=== PATIENT | male | born 2000 | race African-American/Black ===

== ENCOUNTER 2021-09-11 20:45 | Emergency (ER) | payer OTHER ==
[2021-09-11 21:00] VITALS: BP 143/67
[2021-09-11 21:18] LABS: RAPID STREP SCREEN Negative (Negative)
--- NOTE | 2021-09-11 21:43 | ED Physician Documentation ---
PD HPI HEENT - Stated complaint Stated Complaint: THROAT PX - Chief complaint Chief Complaint: Heent - History obtained from History obtained from: Patient - Additional information Additional information: The patient comes to the emergency department chief complaint of sore throat and headache. Patient states his roommate has been coughing and sneezing and he thinks he got the same thing. The patient has had a little bit of a cough but has not had any nasal congestion, and denies shortness of breath. He is fully vaccinated for COVID. The patient states he is mainly here because he would like to be tested for strep. No other complaints at this time. The patient has not had a fever. He is otherwise healthy. Review of Systems Ten Systems: 10 systems reviewed and negative Constitutional: reports: Reviewed and negative Eyes: reports: Reviewed and negative Ears: reports: Reviewed and negative Nose: reports: Reviewed and negative Throat: reports: Sore throat Cardiac: reports: Reviewed and negative Respiratory: reports: Reviewed and negative GI: reports: Reviewed and negative : reports: Reviewed and negative Skin: reports: Reviewed and negative Musculoskeletal: reports: Reviewed and negative Neurologic: reports: Headache Psychiatric: reports: Reviewed and negative Endocrine: reports: Reviewed and negative Immunocompromised: reports: Reviewed and negative PD PAST MEDICAL HISTORY - Present Medications Home Medications: Ambulatory Orders Medication Instructions Recorded Confirmed No Known Home Medications 09/11/21 09/11/21 - Allergies Allergies/Adverse Reactions: Allergies Allergy/AdvReac Type Severity Reaction Status Date / Time No Known Drug Allergies Allergy Verified 09/11/21 21:00 PD ED PE NORMAL - Vitals Vital signs reviewed: Yes - General General: Alert and oriented X 3, No acute distress, Well developed/nourished - HEENT HEENT: Atraumatic, PERRL, EOMI, Moist mucous membranes, Other (Mild pharyngeal erythema, no exudates. Patient has very diminutive tonsils.) - Neck Neck: No adenopathy - Cardiac Cardiac: RRR, No murmur, Strong equal pulses - Respiratory Respiratory: No respiratory distress, Clear bilaterally - Abdomen Abdomen: Soft, Non tender, Non distended - Derm Derm: Normal color, Warm and dry, No rash - Extremities Extremities: No deformity - Neuro Neuro: Alert and oriented X 3, public records officer 2-12 intact, Normal speech, Other (Grossly intact) - Psych Psych: Normal mood, Normal affect Results - Vitals Vitals: Vital Signs - 24 hr 09/11/21 20:55 Temperature 36.9 C Heart Rate 56 L Respiratory 16 Rate Blood Pressure 143/67 H O2 Saturation 100 Oxygen O2 Source Room air - Labs Labs: Laboratory Tests 09/11/21 21:00 Group A Strep Rapid Negative PD MEDICAL DECISION MAKING - ED course Complexity details: reviewed results, re-evaluated patient, considered differential, d/w patient ED course: Patient strep test was negative. We discussed that he most likely has a viral illness, which should be expected to pass on its own. We have discussed symptomatic management and the usual indications for return Departure - Departure Disposition: 01 Home, Self Care Clinical Impression: Viral syndrome Pharyngitis Qualifiers: Pharyngitis/tonsillitis etiology: unspecified etiology Qualified Code(s): J02.9 - Acute pharyngitis, unspecified Condition: Stable Instructions: ED Pharyngitis Viral, ED Viral Syndrome Comments: Your strep test was negative today. You most likely have one of the many viral illnesses that are going around right now, causing such symptoms. Please follow-up with your primary care physician if needed. Forms: Activity restrictions
== END 2021-09-11 21:48 | disposition home or self-care (01) ==
LOC: ED 20:45
DX: J02.9 Acute pharyngitis, unspecified (principal); B34.9 Viral infection, unspecified
CPT/HCPCS: 87070; 87430; 99282; 99283